=== PATIENT | male | born 1970 | race African-American/Black ===

== ENCOUNTER 2017-08-20 01:32 | Emergency (ER) | payer MEDICAID ==
[~2017-08-20] VITALS: Ht 182.9 cm; Wt 89.0 kg
[2017-08-20] MEDS ORDERED: clindamycin 150mg capsule PO ONE (02:35)
[2017-08-20] MEDS ORDERED: CLIN-80 PO (02:39)
[2017-08-20 02:46] VITALS: BP 168/73
== END 2017-08-20 02:50 | disposition home or self-care (01) ==
LOC: ER 01:33
DX: E11.621 Type 2 diabetes mellitus with foot ulcer (principal); L97.519 Non-pressure chronic ulcer of other part of right foot with unspecified severity; I10 Essential (primary) hypertension; F15.10 Other stimulant abuse, uncomplicated
CPT/HCPCS: 99283